=== PATIENT | male | born 1955 | race Caucasian/White ===

== ENCOUNTER 2023-05-13 06:34 | Inpatient (IN) ==
[2023-05-13] MEDS ORDERED: ASPIRIN 81 MG TAB.CHEW CHEWED ONE (07:24)
[2023-05-13 07:58] LABS: Basophils # (Auto) 0.02 K/mcL (0.00-0.30); Basophils % (Auto) 0.1 % (0.0-2.0); Eosinophils # (Auto) 0 K/mcL (0.00-0.70); Eosinophils % (Auto) 0 % (0.0-7.0); Hematocrit 36.6 % (40.1-51.0); Hemoglobin 12.2 g/dL (13.7-17.5); Lymphocytes # (Auto) 0.92 K/mcL (1.50-4.80); Lymphocytes % (Auto) 5.3 % (15.5-49.0); Mean Cell Volume 98.9 fL (80.0-100.0); Mean Corpuscular HGB Conc 33.3 g/dL (31.0-36.0); Mean Platelet Volume 11.2 fL (8.8-12.5); Monocytes # (Auto) 1.09 K/mcL (0.10-0.90); Monocytes % (Auto) 6.2 % (1.0-12.0); Platelet Count 120 K/mcL (140-440); Red Cell Distribution Width 14.5 % (11.5-14.5); WBC 17.5 K/mcL (4.5-11.0)
[2023-05-13 08:03] LABS: ALT/SGPT 49 U/L (<40); AST/SGOT 45 U/L (<40); Albumin 3.2 gm/dL (3.2-5.2); Albumin/Globulin Ratio 0.9 (1.0-2.3); Alkaline Phosphatase 159 U/L (39-117); Bilirubin,Total 0.8 mg/dL (0.1-1.0); Blood Urea Nitrogen 22 mg/dL (8-23); Calcium 9.1 mg/dL (8.6-10.4); Carbon Dioxide 23 mmol/L (22-30); Chloride 98 mmol/L (96-108); Globulin 3.6 gm/dL (2.2-3.7); Glomerular Filtration Rate 78; Glucose 127 mg/dL (70-105)
[2023-05-13 08:11] LABS: INR 1.6 (0.9-1.1); Prothrombin Time 19.3 sec (11.9-14.5)
[2023-05-13 08:15] LABS: Partial Thromboplastin Time 49.4 sec (20.0-37.0)
[2023-05-13 08:52] LABS: Appearance,Urine Hazy (Clear); Bacteria,Urine Few /hpf (0); Bilirubin,Urine Negative (Negative); Color,Urine Yellow; Culture Indicated,Urine Yes; Glucose,Urine (UA) Negative (Negative); Ketones,Urine 15(1+) mg/dL (Negative); Leukocyte Esterase,Urine 1+(Small) /uL (Negative); Nitrate,Urine Positive (Negative); Protein,Urine 100 mg/dL (Negative); Specific Gravity,Urine 1.015 (1.000-1.035); Urine Blood 3+(Large) ery/mcL (Negative); Urine Hyaline Cast 2 /lph (0-2); Urine RBC 20 /hpf (0-3); Urine Squamous Epithelial Cell 0 /hpf (0-4); Urine WBC 50 /hpf (0-4); Urobilinogen,Urine Normal
[2023-05-13] MEDS ORDERED: CEFEPIME 2 GM VIAL IV ONE (08:58)
[2023-05-13] MEDS ORDERED: DILTIAZEM 25 MG/5 ML VIAL IV ONE (10:02)
[2023-05-13] MEDS ORDERED: DILTIAZEM 30 MG TABLET PO ONE (10:25)
[2023-05-13] MEDS ORDERED: IPRATROPIUM/ALBUTEROL 3 ML AMPUL.NEB NEB PRN (12:52)
[2023-05-13] MEDS ORDERED: LACTULOSE 20 GM/30 ML ORAL.SOL PO PRN (12:52)
[2023-05-13] MEDS ORDERED: METOCLOPRAMIDE 10 MG/2 ML VIAL IV PRN (12:52)
[2023-05-13] MEDS ORDERED: METOPROLOL TARTRATE 5 MG/5 ML VIAL IV PRN ×2 (12:53→17:32)
[2023-05-13] MEDS ORDERED: cefTRIAXone 2 GM VIAL ONE (13:39)
[2023-05-13] MEDS: 0.9 % SODIUM CHLORIDE 1,000 ML IV SCH (13:58)
[2023-05-13] MEDS: METOPROLOL TARTRATE 25 MG TABLET PO SCH ×2 (13:59→21:00)
[2023-05-13] MEDS ORDERED: DEXTROSE 31 GM ORAL.SUSP PO PRN ×2 (14:00→16:21)
[2023-05-13] MEDS ORDERED: DEXTROSE 50% 50 ML VIAL IV PRN ×2 (14:00→16:21)
[2023-05-13] MEDS: 0.9 % SODIUM CHLORIDE 10 ML SYRINGE IV SCH ×2 (14:08→21:02)
[2023-05-13] MEDS: cefTRIAXone 2 GM in DEXTROSE 5% IN WATER 50 ML IV SCH (15:23)
[2023-05-13] MEDS ORDERED: HALOPERIDOL LACTATE 5 MG/ML VIAL IV ONE (16:04)
[2023-05-13] MEDS ORDERED: ACETAMINOPHEN 1,000 MG/100 ML BAG IV PRN (16:05)
[2023-05-13] MEDS ORDERED: HALOPERIDOL LACTATE 5 MG/ML VIAL ONE (16:10)
[2023-05-13] MEDS ORDERED: INSULIN LISPRO 1 UNIT/0.01 ML UNIT SQ SCH (17:00)
[2023-05-13] MEDS ORDERED: HALOPERIDOL LACTATE 5 MG/ML VIAL IV PRN (17:21)
[2023-05-13] MEDS: INSULIN LISPRO 1 UNIT/0.01 ML UNIT SQ SCH ×2 (17:29→20:59)
[2023-05-13] MEDS: traMADol 50 MG TABLET PO PRN (18:29)
[2023-05-13] MEDS: CYCLOBENZAPRINE 10 MG TABLET PO PRN (18:30)
[2023-05-13] MEDS: METOPROLOL TARTRATE 5 MG/5 ML VIAL IV PRN (18:57)
[2023-05-13] MEDS: INSULIN GLARGINE, HUMAN 1 UNIT/0.01 ML SQ SCH (20:58)
[2023-05-13] MEDS: DILTIAZEM 30 MG TABLET PO SCH (20:59)
[2023-05-13] MEDS: DOCUSATE SODIUM 100 MG CAPSULE PO SCH (20:59)
[2023-05-13] MEDS: ZOLPIDEM 5 MG TABLET PO PRN (21:00)
[2023-05-13] MEDS ORDERED: METOPROLOL TARTRATE 25 MG TABLET PO SCH (21:00)
[2023-05-13] MEDS: TAMSULOSIN 0.4 MG CAPSULE PO SCH (21:01)
[2023-05-13] MEDS: MELATONIN 3 MG TABLET PO SCH (21:01)
[2023-05-13] MEDS: GABAPENTIN 300 MG CAPSULE PO SCH (21:01)
[2023-05-13] MEDS: APIXABAN 5 MG TABLET PO SCH (21:02)
[2023-05-14] MEDS: CALCIUM CARBONATE 500 MG TAB.CHEW CHEWED PRN ×2 (01:23→11:19)
[2023-05-14] MEDS: 0.9 % SODIUM CHLORIDE 1,000 ML IV SCH ×3 (01:58→23:34)
[2023-05-14] MEDS: ACETAMINOPHEN 325 MG TABLET PO PRN ×2 (02:48→15:37)
[2023-05-14] MEDS: traMADol 50 MG TABLET PO PRN ×2 (03:13→17:10)
[2023-05-14] MEDS: CYCLOBENZAPRINE 10 MG TABLET PO PRN (03:13)
[2023-05-14] MEDS: 0.9 % SODIUM CHLORIDE 10 ML SYRINGE IV SCH ×3 (04:37→21:18)
[2023-05-14 06:14] LABS: Basophils # (Auto) 0.01 K/mcL (0.00-0.30); Basophils % (Auto) 0.1 % (0.0-2.0); Eosinophils # (Auto) 0.01 K/mcL (0.00-0.70); Eosinophils % (Auto) 0.1 % (0.0-7.0); Hematocrit 36.8 % (40.1-51.0); Hemoglobin 11.8 g/dL (13.7-17.5); Lymphocytes % (Auto) 10.4 % (15.5-49.0); Mean Cell Volume 102.8 fL (80.0-100.0); Mean Corpuscular HGB Conc 32.1 g/dL (31.0-36.0); Mean Platelet Volume 11.2 fL (8.8-12.5); Monocytes # (Auto) 1.01 K/mcL (0.10-0.90); Monocytes % (Auto) 8.7 % (1.0-12.0); Neutrophils % (Auto) 80.3 % (38.0-78.0); Platelet Count 121 K/mcL (140-440); RBC 3.58 M/mcL (4.63-6.08); WBC 11.6 K/mcL (4.5-11.0)
[2023-05-14 06:29] LABS: ALT/SGPT 39 U/L (<40); AST/SGOT 53 U/L (<40); Albumin 2.7 gm/dL (3.2-5.2); Albumin/Globulin Ratio 0.7 (1.0-2.3); Alkaline Phosphatase 169 U/L (39-117); Bilirubin,Total 0.6 mg/dL (0.1-1.0); Blood Urea Nitrogen 26 mg/dL (8-23); Calcium 8.8 mg/dL (8.6-10.4); Carbon Dioxide 21 mmol/L (22-30); Chloride 101 mmol/L (96-108); Globulin 3.7 gm/dL (2.2-3.7); Glomerular Filtration Rate 88; Glucose 85 mg/dL (70-105)
[2023-05-14] MEDS: LEVOTHYROXINE 50 MCG TABLET PO SCH (07:30)
[2023-05-14] MEDS: INSULIN LISPRO 1 UNIT/0.01 ML UNIT SQ SCH ×4 (07:31→21:17)
[2023-05-14] MEDS: INSULIN GLARGINE, HUMAN 1 UNIT/0.01 ML SQ SCH (08:54)
[2023-05-14] MEDS: LISINOPRIL 5 MG TABLET PO SCH (08:54)
[2023-05-14] MEDS: APIXABAN 5 MG TABLET PO SCH ×2 (08:55→21:11)
[2023-05-14] MEDS: DILTIAZEM 30 MG TABLET PO SCH ×4 (08:55→21:11)
[2023-05-14] MEDS: DOCUSATE SODIUM 100 MG CAPSULE PO SCH ×2 (08:56→21:11)
[2023-05-14] MEDS: ATORVASTATIN 40 MG TABLET PO SCH (08:56)
[2023-05-14] MEDS: GABAPENTIN 300 MG CAPSULE PO SCH ×3 (08:56→21:10)
[2023-05-14] MEDS: METOPROLOL TARTRATE 25 MG TABLET PO SCH ×2 (08:57→21:11)
[2023-05-14] MEDS: MULTIVIT,THER IRON,CA,FA & MIN 1 TABLET PO SCH (08:57)
[2023-05-14] MEDS ORDERED: FLEETS ADULT 1 DOSE ENEMA PR SCH (10:06)
[2023-05-14] MEDS: cefTRIAXone 2 GM in DEXTROSE 5% IN WATER 50 ML IV SCH (12:51)
[2023-05-14] MEDS ORDERED: INSULIN GLARGINE, HUMAN 1 UNIT/0.01 ML SQ SCH (21:00)
[2023-05-14] MEDS: MELATONIN 3 MG TABLET PO SCH (21:10)
[2023-05-14] MEDS: SENNOSIDES 1 TABLET PO PRN (21:10)
[2023-05-14] MEDS: TAMSULOSIN 0.4 MG CAPSULE PO SCH (21:11)
[2023-05-15] MEDS: ZOLPIDEM 5 MG TABLET PO PRN ×2 (00:25→20:00)
[2023-05-15] MEDS: traMADol 50 MG TABLET PO PRN ×2 (00:26→14:27)
[2023-05-15] MEDS: 0.9 % SODIUM CHLORIDE 10 ML SYRINGE IV SCH ×3 (06:04→20:02)
[2023-05-15 06:07] LABS: Basophils # (Auto) 0.01 K/mcL (0.00-0.30); Basophils % (Auto) 0.1 % (0.0-2.0); Eosinophils # (Auto) 0.05 K/mcL (0.00-0.70); Eosinophils % (Auto) 0.5 % (0.0-7.0); Hemoglobin 11.4 g/dL (13.7-17.5); Lymphocytes # (Auto) 1.85 K/mcL (1.50-4.80); Lymphocytes % (Auto) 17.9 % (15.5-49.0); Mean Cell Volume 100.6 fL (80.0-100.0); Mean Corpuscular HGB Conc 32.6 g/dL (31.0-36.0); Mean Platelet Volume 11.7 fL (8.8-12.5); Monocytes % (Auto) 11.6 % (1.0-12.0); Neutrophils % (Auto) 69.6 % (38.0-78.0); Platelet Count 125 K/mcL (140-440); RBC 3.48 M/mcL (4.63-6.08); Red Cell Distribution Width 15.1 % (11.5-14.5); WBC 10.3 K/mcL (4.5-11.0)
[2023-05-15 06:21] LABS: ALT/SGPT 31 U/L (<40); AST/SGOT 47 U/L (<40); Albumin 2.5 gm/dL (3.2-5.2); Albumin/Globulin Ratio 0.7 (1.0-2.3); Alkaline Phosphatase 171 U/L (39-117); Bilirubin,Total 0.4 mg/dL (0.1-1.0); Blood Urea Nitrogen 25 mg/dL (8-23); Calcium 8.5 mg/dL (8.6-10.4); Carbon Dioxide 20 mmol/L (22-30); Chloride 101 mmol/L (96-108); Globulin 3.8 gm/dL (2.2-3.7); Glomerular Filtration Rate 93; Glucose 59 mg/dL (70-105)
[2023-05-15] MEDS: INSULIN LISPRO 1 UNIT/0.01 ML UNIT SQ SCH ×4 (07:22→20:13)
[2023-05-15] MEDS: 0.9 % SODIUM CHLORIDE 1,000 ML IV SCH (07:33)
[2023-05-15] MEDS: LEVOTHYROXINE 50 MCG TABLET PO SCH (07:33)
[2023-05-15] MEDS: APIXABAN 5 MG TABLET PO SCH ×2 (08:14→20:01)
[2023-05-15] MEDS: DILTIAZEM 30 MG TABLET PO SCH ×4 (08:14→20:00)
[2023-05-15] MEDS: ATORVASTATIN 40 MG TABLET PO SCH (08:14)
[2023-05-15] MEDS: MULTIVIT,THER IRON,CA,FA & MIN 1 TABLET PO SCH (08:15)
[2023-05-15] MEDS: METOPROLOL TARTRATE 25 MG TABLET PO SCH ×2 (08:15→20:01)
[2023-05-15] MEDS: GABAPENTIN 300 MG CAPSULE PO SCH ×3 (08:15→20:01)
[2023-05-15] MEDS: DOCUSATE SODIUM 100 MG CAPSULE PO SCH ×2 (08:15→20:01)
[2023-05-15] MEDS: INSULIN GLARGINE, HUMAN 1 UNIT/0.01 ML SQ SCH ×2 (08:15→20:12)
[2023-05-15] MEDS: LISINOPRIL 5 MG TABLET PO SCH (08:15)
[2023-05-15] MEDS: cefTRIAXone 2 GM in DEXTROSE 5% IN WATER 50 ML IV SCH (12:31)
[2023-05-15] MEDS: ACETAMINOPHEN 325 MG TABLET PO PRN (18:32)
[2023-05-15] MEDS: TAMSULOSIN 0.4 MG CAPSULE PO SCH (20:00)
[2023-05-15] MEDS: SENNOSIDES 1 TABLET PO PRN (20:01)
[2023-05-15] MEDS: MELATONIN 3 MG TABLET PO SCH (20:01)
[2023-05-16] MEDS: 0.9 % SODIUM CHLORIDE 10 ML SYRINGE IV SCH ×3 (05:29→21:21)
[2023-05-16 06:34] LABS: ALT/SGPT 39 U/L (<40); AST/SGOT 50 U/L (<40); Albumin 2.6 gm/dL (3.2-5.2); Albumin/Globulin Ratio 0.7 (1.0-2.3); Alkaline Phosphatase 179 U/L (39-117); Bilirubin,Direct 0.2 mg/dL (<0.3); Bilirubin,Total 0.4 mg/dL (0.1-1.0); Blood Urea Nitrogen 24 mg/dL (8-23); Calcium 8.9 mg/dL (8.6-10.4); Carbon Dioxide 23 mmol/L (22-30); Chloride 104 mmol/L (96-108); Globulin 3.6 gm/dL (2.2-3.7); Glomerular Filtration Rate 93; Glucose 100 mg/dL (70-105); Lactate Dehydrogenase 154 U/L (135-225); Phosphorous 3.2 mg/dL (2.5-4.5); Triglycerides 117 mg/dL (<150); Uric Acid 6.7 mg/dL (2.5-8.0)
[2023-05-16] MEDS: LEVOTHYROXINE 50 MCG TABLET PO SCH (07:26)
[2023-05-16] MEDS: INSULIN LISPRO 1 UNIT/0.01 ML UNIT SQ SCH ×4 (07:26→21:22)
[2023-05-16] MEDS: INSULIN GLARGINE, HUMAN 1 UNIT/0.01 ML SQ SCH ×2 (08:29→21:22)
[2023-05-16] MEDS: DOCUSATE SODIUM 100 MG CAPSULE PO SCH ×2 (08:30→21:20)
[2023-05-16] MEDS: LISINOPRIL 5 MG TABLET PO SCH (08:30)
[2023-05-16] MEDS: APIXABAN 5 MG TABLET PO SCH ×2 (08:30→21:20)
[2023-05-16] MEDS: MULTIVIT,THER IRON,CA,FA & MIN 1 TABLET PO SCH (08:30)
[2023-05-16] MEDS: METOPROLOL TARTRATE 25 MG TABLET PO SCH ×2 (08:30→21:21)
[2023-05-16] MEDS: GABAPENTIN 300 MG CAPSULE PO SCH ×3 (08:30→21:21)
[2023-05-16] MEDS: DILTIAZEM 30 MG TABLET PO SCH ×4 (08:30→21:20)
[2023-05-16] MEDS: ATORVASTATIN 40 MG TABLET PO SCH (08:30)
[2023-05-16] MEDS ORDERED: METOPROLOL TARTRATE 5 MG/5 ML VIAL IV ONE (09:07)
[2023-05-16] MEDS ORDERED: METOPROLOL TARTRATE 5 MG/5 ML VIAL IV PRN (09:07)
[2023-05-16] MEDS ORDERED: diphenhydrAMINE 25 MG CAPSULE PO PRN (09:09)
[2023-05-16 10:12] LABS: Hemoglobin A1C 9.1 % Hgb (4.0-6.0)
[2023-05-16] MEDS: ERTAPENEM 1 GM in 0.9 % SODIUM CHLORIDE 50 ML IV SCH (11:41)
[2023-05-16] MEDS: METOPROLOL TARTRATE 5 MG/5 ML VIAL IV PRN (14:24)
[2023-05-16] MEDS ORDERED: MELATONIN 3 MG TABLET PO SCH (19:00)
[2023-05-16] MEDS: traMADol 50 MG TABLET PO PRN (20:51)
[2023-05-16] MEDS: ZOLPIDEM 5 MG TABLET PO PRN (21:21)
[2023-05-16] MEDS: TAMSULOSIN 0.4 MG CAPSULE PO SCH (21:24)
[2023-05-17] MEDS: 0.9 % SODIUM CHLORIDE 10 ML SYRINGE IV SCH (06:18)
[2023-05-17] MEDS: INSULIN LISPRO 1 UNIT/0.01 ML UNIT SQ SCH (09:15)
[2023-05-17] MEDS: ATORVASTATIN 40 MG TABLET PO SCH (09:16)
[2023-05-17] MEDS: DILTIAZEM 30 MG TABLET PO SCH (09:16)
[2023-05-17] MEDS: DOCUSATE SODIUM 100 MG CAPSULE PO SCH (09:17)
[2023-05-17] MEDS: MULTIVIT,THER IRON,CA,FA & MIN 1 TABLET PO SCH (09:17)
[2023-05-17] MEDS: APIXABAN 5 MG TABLET PO SCH (09:17)
[2023-05-17] MEDS: LISINOPRIL 5 MG TABLET PO SCH (09:17)
[2023-05-17] MEDS: METOPROLOL TARTRATE 25 MG TABLET PO SCH (09:17)
[2023-05-17] MEDS: GABAPENTIN 300 MG CAPSULE PO SCH (09:17)
[2023-05-17] MEDS: LEVOTHYROXINE 50 MCG TABLET PO SCH (09:17)
[2023-05-17] MEDS: INSULIN GLARGINE, HUMAN 1 UNIT/0.01 ML SQ SCH (09:18)
[2023-05-17] MEDS: ERTAPENEM 1 GM in 0.9 % SODIUM CHLORIDE 50 ML IV SCH (09:25)
== END 2023-05-17 11:07 | DRG 871 ==
LOC: ED 06:34 → ICU 13:15
PROVIDERS: ADMIT Internal Medicine; ATTEND Internal Medicine